=== PATIENT | male | born 1960 | race Caucasian/White ===

== ENCOUNTER 2019-01-21 10:21 | Inpatient (IN) | payer MEDICARE, OTHER ==
[~2019-01-21] VITALS: Ht 185.4 cm; Wt 100.2 kg
[2019-01-21] MEDS ORDERED: ATOR20TA PO (10:49)
[2019-01-21] MEDS ORDERED: CALC-20 PO (10:49)
[2019-01-21] MEDS ORDERED: ALBU18HF2 INH (10:49)
[2019-01-21] MEDS ORDERED: VERA240C2 PO (11:05)
[2019-01-21] MEDS ORDERED: GABA-532 PO (11:05)
[2019-01-21] MEDS ORDERED: DOCU250C14 PO (11:05)
[2019-01-21] MEDS ORDERED: UMEC62.5 IH (11:05)
[2019-01-21] MEDS ORDERED: NAPR-1009 PO (11:05)
[2019-01-21] MEDS ORDERED: CLOZ100T32 PO (11:05)
[2019-01-21] MEDS ORDERED: SIMV20TA6 PO (11:05)
[2019-01-21] MEDS ORDERED: OLAN5TAB3 PO (11:07)
[2019-01-21] MEDS ORDERED: ACETAMINOPHEN 325 MG TABLET PO PRN (13:15)
[2019-01-21] MEDS ORDERED: TEMAZEPAM 15 MG CAPSULE PO PRN (13:15)
[2019-01-21] MEDS ORDERED: CLONAZEPAM 0.5 MG TABLET PO PRN (13:15)
[2019-01-21 16:02] LABS: BASOPHILS # (AUTO) 0.1 K/uL (0.0-8.0); EOSINOPHILS # (AUTO) 0.2 K/uL (0.0-0.7); EOSINOPHILS % (AUTO) 2.8 % (0.0-7.0); HEMATOCRIT 39.7 % (36.7-47.1); HEMOGLOBIN 13.2 g/dL (12.5-16.3); LYMPHOCYTES # (AUTO) 1.2 K/uL (20.0-40.0); LYMPHOCYTES % (AUTO) 20.1 % (20.5-51.5); MEAN CORPUSCULAR HEMOGLOBIN 30.4 uug (23.8-33.4); MEAN CORPUSCULAR HGB CONC 33 g/dL (32.5-36.3); MEAN CORPUSCULAR VOLUME 91.5 fL (73.0-96.2); MONOCYTES # (AUTO) 0.6 K/uL (2.0-10.0); MONOCYTES % (AUTO) 10.7 % (0.0-11.0); NEUTROPHILS # (AUTO) 3.9 K/uL (1.8-8.9); NEUTROPHILS % (AUTO) 65.4 % (38.5-71.5); PLATELET COUNT (AUTO) 255 K/uL (152-348); RED BLOOD CELL COUNT(AUTO) 4.34 MIL/uL (4.06-5.63)
[2019-01-21 16:08] VITALS: BP 159/97
[2019-01-21 16:27] LABS: *AMPHETAMINE, URINE NEGATIVE (NEGATIVE); *BARBITURATE, URINE NEGATIVE (NEGATIVE); *CANNABINOID, URINE NEGATIVE (NEGATIVE); *COCCAINE, URINE NEGATIVE (NEGATIVE); *OPIATE, URINE NEGATIVE (NEGATIVE); *PHENCYCLIDINE SCREEN,URINE NEGATIVE (NEGATIVE)
[2019-01-21 16:59] LABS: *BILIRUBIN,URIN NEGATIVE (NEGATIVE); *BLOOD, URINE NEGATIVE (NEGATIVE); *CLARITY,URINE CLEAR (CLEAR); *COLOR,URINE YELLOW (YELLOW); *KETONES,URINE NEGATIVE (NEGATIVE); *UROBILINOGEN,URINE 0.2 E.U./dl (NORMAL); LEUKOCYTE ESTERASE ,URINE NEGATIVE (NEGATIVE); NITRITE, URINE NEGATIVE (NEGATIVE); UGLUCOSE NEGATIVE (NEGATIVE)
[2019-01-21 17:15] LABS: BACTERIA,URINE NONE SEEN /HPF (NONE SEEN); RBC,URINE NONE SEEN /HPF (0-3); SQUAMOUS EPITHELIAL CELL,UR FEW /HPF (NONE SEEN); WBC,URINE 0-3 /HPF (0-3)
[2019-01-21] MEDS ORDERED: MAGNESIUM HYDROXIDE 30 ML LIQUID UDC PO PRN (19:00)
[2019-01-21] MEDS ORDERED: MAG HYDROX/AL HYDROX/SIMETH 30 ML LIQUID UDC PO PRN (19:00)
[2019-01-21 20:00] VITALS: BP 136/88
[2019-01-21] MEDS ORDERED: ALBUTEROL SULFATE 8 GM HFA.AER.AD INH PRN (21:45)
[2019-01-21] MEDS ORDERED: ALBUTEROL SULFATE 2.5 MG/ 0.5 ML NEBU NEB PRN ×2 (23:15)
[2019-01-22 07:30] VITALS: BP 137/85
[2019-01-22] MEDS: DOCUSATE SODIUM 250 MG CAPSULE PO SCH (08:32)
[2019-01-22] MEDS: VERAPAMIL SR 120 MG TABLET.SA PO SCH (08:33)
[2019-01-22] MEDS ORDERED: NAPROXEN 500 MG TABLET PO SCH (09:00)
[2019-01-22] MEDS: OLANZAPINE 5 MG TABLET PO SCH (11:55)
[2019-01-22] MEDS: GABAPENTIN 100 MG CAPSULE PO SCH ×3 (11:55→17:11)
[2019-01-22 15:19] VITALS: BP 155/89
[2019-01-22] MEDS ORDERED: ERGO500040 PO (15:22)
[2019-01-22] MEDS ORDERED: ATOR20TA PO (15:23)
[2019-01-22] MEDS ORDERED: FLUT1BLS6 IH (15:24)
[2019-01-22] MEDS ORDERED: NICO1PAT46 TD (15:26)
[2019-01-22] MEDS ORDERED: NAPROXEN 500 MG TABLET PO PRN (15:45)
[2019-01-22] MEDS ORDERED: SIMVASTATIN 20 MG TABLET PO SCH ×4 (18:00→21:00)
[2019-01-22 19:52] VITALS: BP 140/73
[2019-01-22] MEDS: CLOZAPINE 100 MG TABLET PO SCH (20:32)
[2019-01-22] MEDS: ATORVASTATIN 20 MG TABLET PO SCH (20:32)
[2019-01-22] MEDS ORDERED: CLOZAPINE 25 MG TABLET PO SCH (21:00)
[2019-01-22] MEDS ORDERED: ATORVASTATIN 20 MG TABLET PO SCH (21:00)
[2019-01-23 07:30] VITALS: BP 129/76
[2019-01-23] MEDS: DOCUSATE SODIUM 250 MG CAPSULE PO SCH (08:18)
[2019-01-23] MEDS: GABAPENTIN 100 MG CAPSULE PO SCH ×3 (08:18→16:06)
[2019-01-23] MEDS: OLANZAPINE 5 MG TABLET PO SCH (08:18)
[2019-01-23] MEDS: VERAPAMIL SR 120 MG TABLET.SA PO SCH (08:19)
[2019-01-23] MEDS: FLUTICASONE/VILANTEROL 1 EACH BLST.W.DEV INH SCH (08:19)
[2019-01-23] MEDS: NICOTINE 7 MG/24HR PATCH TD SCH (08:20)
[2019-01-23 08:27] LABS: BASOPHILS # (AUTO) 0.1 K/uL (0.0-8.0); BASOPHILS % (AUTO) 0.9 % (0.0-2.0); EOSINOPHILS # (AUTO) 0.2 K/uL (0.0-0.7); EOSINOPHILS % (AUTO) 3.4 % (0.0-7.0); HEMATOCRIT 38.1 % (36.7-47.1); HEMOGLOBIN 12.9 g/dL (12.5-16.3); LYMPHOCYTES # (AUTO) 1.1 K/uL (20.0-40.0); LYMPHOCYTES % (AUTO) 17.2 % (20.5-51.5); MEAN CORPUSCULAR HEMOGLOBIN 30.9 uug (23.8-33.4); MEAN CORPUSCULAR HGB CONC 34 g/dL (32.5-36.3); MEAN CORPUSCULAR VOLUME 91.1 fL (73.0-96.2); MONOCYTES # (AUTO) 0.5 K/uL (2.0-10.0); MONOCYTES % (AUTO) 7.9 % (0.0-11.0); NEUTROPHILS # (AUTO) 4.5 K/uL (1.8-8.9); NEUTROPHILS % (AUTO) 70.6 % (38.5-71.5); PLATELET COUNT (AUTO) 235 K/uL (152-348); RED BLOOD CELL COUNT(AUTO) 4.18 MIL/uL (4.06-5.63); WHITE BLOOD COUNT (AUTO) 6.4 K/uL (3.6-10.2)
[2019-01-23 08:47] LABS: THYROID STIMULATING HORMONE 1.086 mIU/mL (0.358-3.740)
[2019-01-23] MEDS ORDERED: NAPROXEN 500 MG TABLET PO SCH (09:00)
[2019-01-23 09:06] LABS: BILIRUBIN,TOTAL 0.4 mg/dL (0.2-1.0); CREATININE 0.9 mg/dL (0.6-1.3); MAGNESIUM 2.2 mg/dL (1.8-2.4); PHOSPHOROUS 3.2 mg/dL (2.5-4.9); POTASSIUM 4.4 mmol/L (3.5-5.1); TOTAL PROTEIN, SERUM 6.8 g/dL (6.4-8.2)
[2019-01-23 15:06] VITALS: BP 125/81
[2019-01-23 20:10] VITALS: BP 130/84
[2019-01-23] MEDS: ATORVASTATIN 20 MG TABLET PO SCH (20:16)
[2019-01-23] MEDS: CLOZAPINE 100 MG TABLET PO SCH (20:16)
[2019-01-24 07:30] VITALS: BP 123/83
[2019-01-24] MEDS: GABAPENTIN 100 MG CAPSULE PO SCH ×3 (08:39→16:47)
[2019-01-24] MEDS: DOCUSATE SODIUM 250 MG CAPSULE PO SCH (08:39)
[2019-01-24] MEDS: OLANZAPINE 5 MG TABLET PO SCH (08:39)
[2019-01-24] MEDS: NICOTINE 7 MG/24HR PATCH TD SCH (08:40)
[2019-01-24] MEDS: VERAPAMIL SR 120 MG TABLET.SA PO SCH (08:40)
[2019-01-24] MEDS: FLUTICASONE/VILANTEROL 1 EACH BLST.W.DEV INH SCH (08:41)
[2019-01-24 16:00] VITALS: BP 148/87
[2019-01-24 20:15] VITALS: BP 126/81
[2019-01-24] MEDS: ATORVASTATIN 20 MG TABLET PO SCH (20:41)
[2019-01-24] MEDS: CLOZAPINE 100 MG TABLET PO SCH (20:42)
[2019-01-25 07:30] VITALS: BP 133/78
[2019-01-25] MEDS: DOCUSATE SODIUM 250 MG CAPSULE PO SCH (08:44)
[2019-01-25] MEDS: OLANZAPINE 5 MG TABLET PO SCH (08:44)
[2019-01-25] MEDS: GABAPENTIN 100 MG CAPSULE PO SCH ×3 (08:44→16:44)
[2019-01-25] MEDS: VERAPAMIL SR 120 MG TABLET.SA PO SCH (08:45)
[2019-01-25] MEDS: NICOTINE 7 MG/24HR PATCH TD SCH (08:45)
[2019-01-25] MEDS: FLUTICASONE/VILANTEROL 1 EACH BLST.W.DEV INH SCH (08:48)
[2019-01-25 16:00] VITALS: BP 134/81
[2019-01-25] MEDS: CLOZAPINE 100 MG TABLET PO SCH (20:06)
[2019-01-25] MEDS: ATORVASTATIN 20 MG TABLET PO SCH (20:06)
[2019-01-25 20:15] VITALS: BP_SYST 159; BP_SYST 167; BP_DIAS 85; BP_DIAS 91
[2019-01-26 07:30] VITALS: BP 104/83
[2019-01-26] MEDS: GABAPENTIN 100 MG CAPSULE PO SCH ×3 (08:33→16:53)
[2019-01-26] MEDS: OLANZAPINE 5 MG TABLET PO SCH (08:33)
[2019-01-26] MEDS: DOCUSATE SODIUM 250 MG CAPSULE PO SCH (08:33)
[2019-01-26] MEDS: FLUTICASONE/VILANTEROL 1 EACH BLST.W.DEV INH SCH (08:34)
[2019-01-26] MEDS: VERAPAMIL SR 120 MG TABLET.SA PO SCH (08:34)
[2019-01-26] MEDS: NICOTINE 7 MG/24HR PATCH TD SCH (08:36)
[2019-01-26 15:07] VITALS: BP 132/87
[2019-01-26] MEDS: CLOZAPINE 100 MG TABLET PO SCH (20:16)
[2019-01-26] MEDS: ATORVASTATIN 20 MG TABLET PO SCH (20:16)
[2019-01-26 21:40] VITALS: BP 138/89
[2019-01-27 07:30] VITALS: BP 150/86
[2019-01-27 07:45] LABS: BASOPHILS # (AUTO) 0.1 K/uL (0.0-8.0); EOSINOPHILS # (AUTO) 0.3 K/uL (0.0-0.7); EOSINOPHILS % (AUTO) 5.3 % (0.0-7.0); HEMATOCRIT 36.1 % (36.7-47.1); HEMOGLOBIN 12.1 g/dL (12.5-16.3); LYMPHOCYTES # (AUTO) 1.4 K/uL (20.0-40.0); LYMPHOCYTES % (AUTO) 24.3 % (20.5-51.5); MEAN CORPUSCULAR HEMOGLOBIN 30.9 uug (23.8-33.4); MEAN CORPUSCULAR HGB CONC 34 g/dL (32.5-36.3); MEAN CORPUSCULAR VOLUME 92.1 fL (73.0-96.2); MONOCYTES # (AUTO) 0.6 K/uL (2.0-10.0); MONOCYTES % (AUTO) 11.2 % (0.0-11.0); NEUTROPHILS # (AUTO) 3.4 K/uL (1.8-8.9); NEUTROPHILS % (AUTO) 58.2 % (38.5-71.5); PLATELET COUNT (AUTO) 230 K/uL (152-348); RED BLOOD CELL COUNT(AUTO) 3.92 MIL/uL (4.06-5.63); WHITE BLOOD COUNT (AUTO) 5.8 K/uL (3.6-10.2)
[2019-01-27] MEDS: OLANZAPINE 5 MG TABLET PO SCH (08:11)
[2019-01-27] MEDS: DOCUSATE SODIUM 250 MG CAPSULE PO SCH (08:11)
[2019-01-27] MEDS: GABAPENTIN 100 MG CAPSULE PO SCH ×3 (08:11→18:03)
[2019-01-27] MEDS: NICOTINE 7 MG/24HR PATCH TD SCH (08:11)
[2019-01-27] MEDS: FLUTICASONE/VILANTEROL 1 EACH BLST.W.DEV INH SCH (08:11)
[2019-01-27] MEDS: VERAPAMIL SR 120 MG TABLET.SA PO SCH (08:13)
[2019-01-27 16:00] VITALS: BP 134/84
[2019-01-27 20:07] VITALS: BP 152/85
[2019-01-27] MEDS: ATORVASTATIN 20 MG TABLET PO SCH (20:10)
[2019-01-27] MEDS: CLOZAPINE 100 MG TABLET PO SCH (20:10)
[2019-01-28 07:30] VITALS: BP 131/67
[2019-01-28] MEDS: DOCUSATE SODIUM 250 MG CAPSULE PO SCH (08:35)
[2019-01-28] MEDS: VERAPAMIL SR 120 MG TABLET.SA PO SCH (08:35)
[2019-01-28] MEDS: GABAPENTIN 100 MG CAPSULE PO SCH ×3 (08:35→17:04)
[2019-01-28] MEDS: OLANZAPINE 5 MG TABLET PO SCH (08:35)
[2019-01-28] MEDS: FLUTICASONE/VILANTEROL 1 EACH BLST.W.DEV INH SCH (08:37)
[2019-01-28] MEDS: NICOTINE 7 MG/24HR PATCH TD SCH (09:56)
[2019-01-28 10:26] LABS: BASOPHILS # (AUTO) 0.1 K/uL (0.0-8.0); BASOPHILS % (AUTO) 1.1 % (0.0-2.0); EOSINOPHILS # (AUTO) 0.2 K/uL (0.0-0.7); HEMATOCRIT 38.1 % (36.7-47.1); HEMOGLOBIN 12.6 g/dL (12.5-16.3); LYMPHOCYTES # (AUTO) 1.3 K/uL (20.0-40.0); LYMPHOCYTES % (AUTO) 24.2 % (20.5-51.5); MEAN CORPUSCULAR HEMOGLOBIN 30.7 uug (23.8-33.4); MEAN CORPUSCULAR HGB CONC 33 g/dL (32.5-36.3); MEAN CORPUSCULAR VOLUME 92.6 fL (73.0-96.2); MONOCYTES # (AUTO) 0.4 K/uL (2.0-10.0); MONOCYTES % (AUTO) 7.7 % (0.0-11.0); NEUTROPHILS # (AUTO) 3.5 K/uL (1.8-8.9); PLATELET COUNT (AUTO) 218 K/uL (152-348); RED BLOOD CELL COUNT(AUTO) 4.11 MIL/uL (4.06-5.63); WHITE BLOOD COUNT (AUTO) 5.5 K/uL (3.6-10.2)
[2019-01-28 15:31] VITALS: BP 143/74
[2019-01-28 20:00] VITALS: BP 137/89
[2019-01-28] MEDS: CLOZAPINE 100 MG TABLET PO SCH (20:25)
[2019-01-28] MEDS: ATORVASTATIN 20 MG TABLET PO SCH (20:25)
[2019-01-29 07:30] VITALS: BP 142/82
[2019-01-29] MEDS: OLANZAPINE 5 MG TABLET PO SCH (08:15)
[2019-01-29] MEDS: DOCUSATE SODIUM 250 MG CAPSULE PO SCH (08:15)
[2019-01-29] MEDS: GABAPENTIN 100 MG CAPSULE PO SCH ×3 (08:15→16:39)
[2019-01-29] MEDS: FLUTICASONE/VILANTEROL 1 EACH BLST.W.DEV INH SCH (08:15)
[2019-01-29] MEDS: VERAPAMIL SR 120 MG TABLET.SA PO SCH (08:16)
[2019-01-29] MEDS: NICOTINE 7 MG/24HR PATCH TD SCH (08:17)
[2019-01-29] MEDS ORDERED: ERGOCALCIFEROL 50,000 UNIT CAPSULE PO SCH (09:00)
[2019-01-29 15:40] VITALS: BP 147/96
[2019-01-29 20:01] VITALS: BP 141/91
[2019-01-29] MEDS: ATORVASTATIN 20 MG TABLET PO SCH (20:25)
[2019-01-29] MEDS: CLOZAPINE 100 MG TABLET PO SCH (20:25)
[2019-01-30 07:30] VITALS: BP 139/93
[2019-01-30 09:15] VITALS: BP 139/93
[2019-01-30] MEDS: GABAPENTIN 100 MG CAPSULE PO SCH (09:15)
[2019-01-30] MEDS: DOCUSATE SODIUM 250 MG CAPSULE PO SCH (09:15)
[2019-01-30] MEDS: NICOTINE 7 MG/24HR PATCH TD SCH (09:15)
[2019-01-30] MEDS: VERAPAMIL SR 120 MG TABLET.SA PO SCH (09:15)
[2019-01-30] MEDS: OLANZAPINE 5 MG TABLET PO SCH (09:15)
[2019-01-30] MEDS: FLUTICASONE/VILANTEROL 1 EACH BLST.W.DEV INH SCH (09:15)
== END 2019-01-30 11:00 | DRG 885 ==
LOC: ER 10:21 → GPS 12:36
PROVIDERS: ADMIT Psychiatry & Neurology Psychiatry; ATTEND Nurse Practitioner Acute Care
DX: F20.0 Paranoid schizophrenia (principal); I45.2 Bifascicular block; I11.9 Hypertensive heart disease without heart failure; E78.5 Hyperlipidemia, unspecified; E66.9 Obesity, unspecified; Z68.28 Body mass index [BMI] 28.0-28.9, adult; F17.200 Nicotine dependence, unspecified, uncomplicated; F31.9 Bipolar disorder, unspecified; M19.90 Unspecified osteoarthritis, unspecified site; Z79.899 Other long term (current) drug therapy; I70.0 Atherosclerosis of aorta
CPT/HCPCS: 36415; 71045; 80307; 83735; 84100; 84443; 85025; 93005; 93307; A4663; A9150